=== PATIENT | male | born 1980 | race Caucasian/White ===

== ENCOUNTER 2022-05-04 00:01 | Emergency (ER) | payer BC ==
[~2022-05-04] VITALS: Ht 170.2 cm; Wt 90.7 kg
[2022-05-04] MEDS ORDERED: HYDR-3980 PO (00:32)
--- NOTE | 2022-05-04 00:36 | NUR ---
Patient discharged in stable condition. Written and verbal after care instructions given. Patient verbalizes understanding of instructions. Stressed follow up or return to ER for worsening s/s.
[2022-05-04] MEDS ORDERED: IBUPROFEN 600 MG TABLET ONE (00:39)
[2022-05-04 00:42] VITALS: BP 135/90
[2022-05-04] MEDS ORDERED: IBUPROFEN 600 MG TABLET PO ONE (00:45)
== END 2022-05-04 00:43 | disposition home or self-care (01) ==
LOC: ER 00:01
DX: M25.511 Pain in right shoulder (principal); R03.0 Elevated blood-pressure reading, without diagnosis of hypertension; Z90.49 Acquired absence of other specified parts of digestive tract
CPT/HCPCS: 73030; A4663